=== PATIENT | female | born 1990 | race Caucasian/White ===

== ENCOUNTER 2019-01-06 09:36 | Emergency (ER) | payer OTHER, SELFPAY ==
[2019-01-06 09:38] VITALS: BP 128/75; PULSE 70; RESP 16; TEMP 36.3; O2SAT 100; BMI 20.3
--- NOTE | 2019-01-06 09:51 | US_ITS ---
STUDY: FIRST TRIMESTER OBSTETRICAL ULTRASOUND REASON FOR EXAM: Female, 28 years old vaginal bleeding. LMP: Unknown. TECHNIQUE: Transvaginal TECHNICAL QUALITY: Adequate. PRIOR ULTRASOUND: None. FINDINGS: There is no demonstrated intrauterine gestational sac. The uterus measures 8.1 x 4.7 x 4.4 cm. The endometrium is prominent measuring by 14 mm in thickness and is hyperechoic the. There is no demonstrated uterine fibroid. The cervix is closed. The right ovary measures 2.4 x 1.6 x 5.2 cm. There is no right ovarian cyst. There is no visualized right adnexal mass or complex lesion. The left ovary measures 1.9 x 2.6 x 1.1 cm. There is no left ovarian cyst. There is no visualized left adnexal mass or complex lesion. There is a moderate amount of fluid in the cul de sac. US/Transvaginal w/Preg US IMPRESSION: There is no evidence of intrauterine . Ectopic cannot be excluded. Correlation with beta-hCG levels and if clinically indicated, follow-up examination is recommended. Electronically Signed: Miko Rosenbaum MD at 12:01 EST Tel , Service support ,
--- NOTE | 2019-01-06 09:59 | ED.VISSUMM ---
- ER Visit Summary Date of Service: 01/06/19 Chief Complaint: Vaginal bleeding History of Present Illness: The patient is a 28 F Ab1 at 7 weeks by last menstrual dating. Presents with vaginal spotting, moderate since yesterday. Denies pain, discharge, or any other associated symptoms. Her first miscarried early but may be around 5 or 6 weeks. They never found a heartbeat. She has not required D&C or instrumentation. She does not know her blood type. Physical Examination: Afebrile and vital signs are unremarkable. Abdomen is soft and nontender. CVAs nontender. Pelvic exam pending. Test Results: Labs, quant, ABO Rh, ultrasound pending. Emergency Department Course and Treatment: CBC unremarkable. Blood type a positive. Quant is 1141 8 ultrasound shows no or masses. Patient was discussed with Dr. Cabrera. She will need a follow-up quant in 48 hours. She was given a paper laboratory test requisition form. Dr. Will Steen will call with results. There is concern for miscarriage versus ectopic. Treatment Plan: As above Disposition: Discharge Impression: 1. Vaginal bleeding This note was generated with [employer] dictation software. It may contain incorrect words, spelling, and punctuation that were not noted in review of the chart prior to signing ED Disposition - Plan for ED Patient: Referrals: Care Physician,No Primary [Primary Care Provider] -
[2019-01-06 10:53] LABS: Absolute Lymphocyte Count 1.37 X10^3/uL (0.83-4.51); Absolute Neutrophil Count 4.9 X10^3/uL (2.0-7.7); Basophil# 0.03 X10^3/uL; Basophil% 0.4 % (0-1); Eosinophil# 0.08 X10^3/uL; Eosinophils% 1.1 % (0-5); Hematocrit 41.1 % (37-47); Hemoglobin 13.7 g/dL (12.0-15.0); Lymphocyte # 1.37 X10^3/ul (4.0); Lymphocyte % 19.4 % (19-41); Mean Corp Hgb Conc 33.3 g/dL (32-36); Mean Corpuscular Hgb 29.2 pg (27.0-32.0); Mean Corpuscular Volume 87.6 fL (81-99); Mean Platelet Vol. 11.6 fl (6.2-12.0); Monocyte# 0.64 X10^3/uL; Monocyte% 9.1 % (0-10); NRBC Flagged by Analyzer 0 % (0-5); Neutrophil # 4.93 X10^3/uL (2.7-7.7); Neutrophil % 69.7 % (47-70); Platelet Count 178 K/mm3 (150-450); RBC Distribution Width SD 38.9 fl (35.1-43.9); Red Blood Count 4.69 M/mm3 (4.2-5.4); White Blood Count 7.1 K/mm3 (4.4-11.0)
[2019-01-06 11:14] LABS: Anion Gap 7 (5-15); BUN 11 mg/dL (7-18); BUN/Creat Ratio 17.7 RATIO (10-20); Calcium,Total 8.6 mg/dL (8.5-10.1); Chloride 109 mmol/L (98-107); Creatinine, Serum 0.62 mg/dL (0.55-1.02); EST Glomerular Filtration Rate 121 mL/min (>60); Est Glom Filt Rate - Afr Amer 146 mL/min (>60); Estimated Creatinine Clearance 124.63 ml/min; Glucose 83 mg/dL (74-106); Potassium 3.6 mmol/L (3.5-5.1); Sodium Level 140 mmol/L (136-145)
[2019-01-06 11:41] LABS: hCG Titer Quant., Serum 1141 mIU/mL (1-3)
--- NOTE | 2019-01-06 12:28 | ED.DEP ---
ED Disposition - Plan for ED Patient: Instructions: POSSIBLE MISCARRIAGE (Threatened ) Referrals: Yoon Cabrera MD [STAFF PHYSICIAN] -
[2019-01-06 12:45] VITALS: BP 129/67; PULSE 71; RESP 15; O2SAT 98
== END 2019-01-06 12:46 | disposition home or self-care (01) ==
PROVIDERS: Emergency Provider Emergency Medicine
DX: O20.9 Hemorrhage in early pregnancy, unspecified (principal); Z3A.01 Less than 8 weeks gestation of pregnancy
CPT/HCPCS: 76817; 80048; 84702; 85025; 86900; 86901; 99285; A4216

== ENCOUNTER → 2019-01-08 19:52 | Outpatient (CLI) | payer OTHER, SELFPAY ==
[2019-01-06 09:38] VITALS: BMI 20.3
[2019-01-08 20:55] LABS: hCG Titer Quant., Serum 238 mIU/mL (1-3)
== END ==
PROVIDERS: Referring Provider Emergency Medicine; Visit Provider Emergency Medicine
DX: N93.9 Abnormal uterine and vaginal bleeding, unspecified (principal)
CPT/HCPCS: 36415; 84702

== ENCOUNTER → 2019-02-08 10:41 | Outpatient (CLI) | payer OTHER, SELFPAY ==
[2019-02-08 12:41] LABS: hCG Titer Quant., Serum 79 mIU/mL (1-3)
== END ==
PROVIDERS: Referring Provider Nurse Practitioner Women's Health; Visit Provider Nurse Practitioner Women's Health
DX: O03.9 Complete or unspecified spontaneous abortion without complication (principal)
CPT/HCPCS: 36415; 84702; J7030; A4216

== ENCOUNTER → 2019-02-10 11:17 | Outpatient (CLI) | payer OTHER, SELFPAY ==
[2019-02-08 15:53] VITALS: BMI 21.7
[2019-02-10 12:40] LABS: hCG Titer Quant., Serum 160 mIU/mL (1-3)
[2019-02-12 09:06] LABS: Progesterone Level 16.83 ng/mL (See Comment)
== END ==
PROVIDERS: Referring Provider Obstetrics & Gynecology; Visit Provider Obstetrics & Gynecology
DX: N96 Recurrent pregnancy loss (principal)
CPT/HCPCS: 36415; 84144; 84702

== ENCOUNTER → 2019-02-19 19:18 | Outpatient (CLI) | payer OTHER, SELFPAY ==
[2019-02-08 15:53] VITALS: BMI 21.7
[2019-02-19 20:43] LABS: hCG Titer Quant., Serum 45 mIU/mL (1-3)
== END ==
PROVIDERS: Referring Provider Obstetrics & Gynecology; Visit Provider Obstetrics & Gynecology
DX: N96 Recurrent pregnancy loss (principal)
CPT/HCPCS: 36415; 84702

== ENCOUNTER → 2019-02-21 19:15 | Outpatient (CLI) | payer OTHER, SELFPAY ==
[2019-02-08 15:53] VITALS: BMI 21.7
[2019-02-21 21:03] LABS: hCG Titer Quant., Serum 12 mIU/mL (1-3)
== END ==
PROVIDERS: Referring Provider Obstetrics & Gynecology; Visit Provider Obstetrics & Gynecology
DX: N96 Recurrent pregnancy loss (principal)
CPT/HCPCS: 36415; 84702

== ENCOUNTER → 2019-04-23 14:54 | Outpatient (CLI) | payer OTHER, SELFPAY ==
[2019-04-23 10:15] VITALS: BMI 22.6
[2019-04-23 16:11] LABS: Amphetamine Urine VISTA NEGATIVE (<1000 ng/mL); Barbiturate Urine VISTA NEGATIVE (< 200 ng/mL); Benzodiazepine Urine VISTA NEGATIVE (< 200 ng/mL); Cocaine Urine VISTA NEGATIVE (< 300 ng/mL); Ecstacy Urine VISTA NEGATIVE (< 500 ng/mL); Methadone Urine VISTA NEGATIVE (< 300 ng/mL); PCP Urine VISTA NEGATIVE (< 25 ng/mL); THC Urine VISTA NEGATIVE (< 50 ng/mL); Vista UDS pH Range 6
[2019-04-23 19:40] LABS: Chlamydia Trachomatis by PCR Negative (Negative); Neisserai gonorrhoeae by PCR Negative (Negative); Probe Check PASS; Sample Adequacy Control PASS; Specimen Processing Control PASS
[2019-04-27 11:35] LABS: HPV Reflexed? NOT INDICATED
== END ==
LOC: LABSPEC 14:55
PROVIDERS: Referring Provider Nurse Practitioner Women's Health; Visit Provider Nurse Practitioner Women's Health
DX: O09.90 Supervision of high risk pregnancy, unspecified, unspecified trimester (principal)
CPT/HCPCS: 80307; 87086; 87491; 87591; 88175; G0145

== ENCOUNTER → 2019-05-24 16:20 | Outpatient (CLI) | payer OTHER, SELFPAY ==
[2019-05-24 15:52] VITALS: BMI 22.6
[2019-05-24 17:28] LABS: Absolute Lymphocyte Count 2.32 X10^3/uL (0.83-4.51); Absolute Neutrophil Count 7.9 X10^3/uL (2.0-7.7); Basophil# 0.04 X10^3/uL; Basophil% 0.3 % (0-1); Eosinophil# 0.14 X10^3/uL; Eosinophils% 1.2 % (0-5); Hematocrit 39.8 % (37-47); Hemoglobin 13.1 g/dL (12.0-15.0); Lymphocyte # 2.32 X10^3/ul (4.0); Lymphocyte % 20.2 % (19-41); Mean Corp Hgb Conc 32.9 g/dL (32-36); Mean Corpuscular Hgb 28.4 pg (27.0-32.0); Mean Corpuscular Volume 86.3 fL (81-99); Monocyte# 1.03 X10^3/uL; NRBC Flagged by Analyzer 0 % (0-5); Neutrophil # 7.91 X10^3/uL (2.7-7.7); Neutrophil % 68.9 % (47-70); Platelet Count 217 K/mm3 (150-450); RBC Distribution Width CV 12.5 % (11.6-14.6); RBC Distribution Width SD 39.2 fl (35.1-43.9); Red Blood Count 4.61 M/mm3 (4.2-5.4); White Blood Count 11.5 K/mm3 (4.4-11.0)
[2019-05-25 09:06] LABS: HIV - WCH Non-Reactive (Nonreactive); Hepatitis B Surface Antigen Non-Reactive (Nonreactive); Hepatitis C Antibody Non-Reactive (Nonreactive); Rubella IgG 184.9 IU/mL
[2019-05-31 00:52] LABS: Rapid Plasmin Reagin (RPR) NONREACTIVE (NONREACTIVE)
== END ==
PROVIDERS: Referring Provider Nurse Practitioner Women's Health; Visit Provider Nurse Practitioner Women's Health
DX: O09.90 Supervision of high risk pregnancy, unspecified, unspecified trimester (principal); Z3A.00 Weeks of gestation of pregnancy not specified
CPT/HCPCS: 36415; 85025; 86592; 86703; 86762; 86803; 86850; 86900; 86901; 87340

== ENCOUNTER → 2019-08-30 13:58 | Outpatient (CLI) | payer OTHER, SELFPAY ==
[2019-08-16 16:24] VITALS: BMI 26.7
[2019-08-30 15:25] LABS: Absolute Lymphocyte Count 2.42 X10^3/uL (0.83-4.51); Absolute Neutrophil Count 12.7 X10^3/uL (2.0-7.7); Basophil# 0.06 X10^3/uL; Basophil% 0.4 % (0-1); Eosinophil# 0.11 X10^3/uL; Eosinophils% 0.6 % (0-5); Hematocrit 35.1 % (37-47); Hemoglobin 11.6 g/dL (12.0-15.0); Lymphocyte # 2.42 X10^3/ul (4.0); Lymphocyte % 14.1 % (19-41); Mean Corpuscular Hgb 29.1 pg (27.0-32.0); Mean Platelet Vol. 11.4 fl (6.2-12.0); Monocyte# 1.46 X10^3/uL; Monocyte% 8.5 % (0-10); NRBC Flagged by Analyzer 0 % (0-5); Neutrophil # 12.71 X10^3/uL (2.7-7.7); Neutrophil % 74.4 % (47-70); Platelet Count 233 K/mm3 (150-450); RBC Distribution Width CV 13.2 % (11.6-14.6); RBC Distribution Width SD 41.6 fl (35.1-43.9); Red Blood Count 3.99 M/mm3 (4.2-5.4); White Blood Count 17.1 K/mm3 (4.4-11.0)
[2019-08-30 15:42] LABS: Glucose Challenge Gest 1H 50g 132 mg/dL (70-140)
== END ==
PROVIDERS: Referring Provider Obstetrics & Gynecology; Visit Provider Obstetrics & Gynecology
DX: O09.90 Supervision of high risk pregnancy, unspecified, unspecified trimester (principal); Z3A.00 Weeks of gestation of pregnancy not specified
CPT/HCPCS: 36415; 82950; 85025

== ENCOUNTER → 2019-11-01 | Outpatient (CLI) | payer OTHER, SELFPAY ==
[2019-11-01 14:13] VITALS: BMI 26.7
== END | disposition home or self-care (01) ==
LOC: LABSPEC 16:44
PROVIDERS: Referring Provider Obstetrics & Gynecology; Visit Provider Obstetrics & Gynecology
DX: Z34.90 Encounter for supervision of normal pregnancy, unspecified, unspecified trimester (principal)
CPT/HCPCS: 87081

== ENCOUNTER → 2019-11-20 | Outpatient (CLI) | payer OTHER, SELFPAY ==
[2019-11-09 14:41] VITALS: BMI 29.7
[2019-11-16 14:45] VITALS: BMI 29.7
== END | disposition home or self-care (01) ==
LOC: LABSPEC 18:01
PROVIDERS: Referring Provider Obstetrics & Gynecology; Visit Provider Obstetrics & Gynecology
DX: Z11.59 Encounter for screening for other viral diseases (principal)
CPT/HCPCS: 87635; C9803; U0003

== ENCOUNTER 2019-11-23 13:20 | Inpatient (IN) | payer OTHER, MEDICAID, SELFPAY ==
[2019-11-23] VITALS (35 sets, daily range): BP systolic 110–148; BP diastolic 57–86; PULSE 72–106; TEMP 36.4–37.1; O2SAT 90–100; BMI 29.7; BMI 30.7
[2019-11-23 13:20] LABS: ROM Internal Control Test YES-OK TO RESULT pt. (Internal QC)
[2019-11-23 13:21] LABS: ROM Patient Test POSITIVE (Negative)
[2019-11-23] MEDS: Lactated Ringers 1,000 ML 50 ML IV (13:45)
[2019-11-23 14:03] LABS: Absolute Lymphocyte Count 2.27 X10^3/uL (0.83-4.51); Absolute Neutrophil Count 11.6 X10^3/uL (2.0-7.7); Basophil# 0.06 X10^3/uL; Basophil% 0.4 % (0-1); Eosinophil# 0.11 X10^3/uL; Eosinophils% 0.7 % (0-5); Hematocrit 38.9 % (37-47); Hemoglobin 12.7 g/dL (12.0-15.0); Lymphocyte # 2.27 X10^3/ul (4.0); Lymphocyte % 14.1 % (19-41); Mean Corp Hgb Conc 32.6 g/dL (32-36); Mean Corpuscular Hgb 27.5 pg (27.0-32.0); Mean Corpuscular Volume 84.2 fL (81-99); Mean Platelet Vol. 11.9 fl (6.2-12.0); Monocyte% 9.9 % (0-10); NRBC Flagged by Analyzer 0 % (0-5); Neutrophil # 11.64 X10^3/uL (2.7-7.7); Neutrophil % 72.1 % (47-70); POSITIVE DIFFERENTIAL YES; Platelet Count 243 K/mm3 (150-450); RBC Distribution Width CV 13.7 % (11.6-14.6); RBC Distribution Width SD 41.8 fl (35.1-43.9); Red Blood Count 4.62 M/mm3 (4.2-5.4); White Blood Count 16.1 K/mm3 (4.4-11.0)
[2019-11-23 14:11] LABS: Differential Indicated SCAN CRITERIA MET
[2019-11-23 14:15] LABS: AST(SGOT) 21 U/L (15-37); Alanine Aminotransfer ALT/SGPT 44 U/L (13-56); Creatinine, Serum 0.59 mg/dL (0.55-1.02); EST Glomerular Filtration Rate 128 mL/min (>60); Est Glom Filt Rate - Afr Amer 154 mL/min (>60); Estimated Creatinine Clearance 131.71 ml/min; Uric Acid 3.6 mg/dL (2.6-6.0)
[2019-11-23 15:43] LABS: Protein, Urine (Random) 24.1 mg/dL (<11.9); Protein:Creat Ratio 444 mg/g CRE (0-200)
[2019-11-23] MEDS: Oxytocin 30 units/NS 500 ml 30 UNITS/500 ML IV.SOLN IV (16:01)
--- NOTE | 2019-11-23 20:19 | SUR.OPER ---
At 1915 this RN noted pitocin to be at 8mu/hr - see Connect for titration rate changes.
[2019-11-23] MEDS: Lactated Ringers 500 ML 999 ML IV (20:26)
[2019-11-23] MEDS: Lactated Ringers 1,000 ML 200 ML IV (21:03)
[2019-11-23] MEDS: fentaNYL-bupivacaine (epidural) 100 ML BAG EPIDURAL (21:20)
[2019-11-24] VITALS (23 sets, daily range): BP systolic 96–126; BP diastolic 53–68; PULSE 79–118; RESP 14–18; TEMP 36.4–38; O2SAT 98–99
[2019-11-24] MEDS: Ondansetron 4 MG/2 ML Vial IV (00:33)
[2019-11-24] MEDS: fentaNYL-bupivacaine (epidural) 100 ML BAG EPIDURAL (01:30)
--- NOTE | 2019-11-24 01:56 | HP.PCM_ITS ---
- Problem List (1) 38 weeks gestation of Status: Acute Comment: COVID TESTING ORDERED 11/14/2019sc (2) Status: Acute Qualifiers: Comment: declined ntd, carrier and NIPT screening. anatomy us reviewed. (3) SROM (spontaneous rupture of membranes) Status: Acute (4) Supervision of normal in third trimester Status: Acute Comment: PRR ELAINE 11/24/19 girl Spouse Aime History and Physical Date of Admission: 11/23/19 Intake Vital Signs 11/23/19 BMI 29.7 11/23/19 Height 5 ft 6.5 in 11/23/19 Weight: 191 lb 11/23/19 BMI 30.3 11/23/19 BP 140/80 H Intake Visit Reasons: 40 WK OB Is patient in pain?: No Allergies metronidazole [From Flagyl] Allergy (Verified 11/23/19 12:40) Swelling pecans Allergy (Mild, Uncoded 11/16/19 14:44) unknown walnuts Allergy (Mild, Uncoded 11/16/19 14:44) unknown Medications prenat.vits,carolina,[id number] 1 tab PO DAILY 04/23/19 [History Confirmed 11/23/19] Last Menstral Period: 02/17/19 Zika: Zika virus screening: Negative : No PFSH PFSH Family History Grandfather Diabetes Heart disease Mother Rheumatoid arthritis Social History (Updated 11/23/19 @ 13:[address] Yoon Cabrera MD) Smoking Status: Never smoker alcohol intake: never substance use type: does not use caffeine: Yes what type of physical activity do you participate in: none seatbelt use: sometimes do you feel safe at home: Yes additional social history: Boyfriend-Aime Patient works at [employer] Pregancy History 4 Elective abortions Hx Para Spontaneous abortions 3 Hx # Term Pregnancies Ectopic pregnancies Hx # Pregnancies Multiple births # of living children HPI 40 WK OB: Details: KAMARI ANTHONY is a 28 year old @ 39w6d presents with PROM pos itive rom plus. she hasn't had any contraction and denies any vb, has good fm. OB Visit ELAINE Calculator Estimated Delivery Date Method Current WG Current Estimate 11/24/19 LMP (Uncertain) 39w 6d Other Estimates 11/25/19 Ultrasound #1 39w 5d Expected Delivery Route/Plan Labor support person Aime Pain management preference option epidural cut cord/dad catch yes yes PP control plan OCPs discuss possible routes of delivery and associated risks: discussed possible delivery modalities and possible indications for each including R/B/A of , VAVD, and CS. questions answered. special requests [] Specific Issue/Plans flu vaccine declines tdap vaccine: given rhogam na LARC form signed yes movement and labor precautions reviewed. Problem list reviewed and updated with the most current details and appropriate orders placed. Continue routine care and follow up unless otherwise noted in visit notes/problem list details. Initial Weight: 140 lb Date EGA Weight BP Urine Prot Glucose FHR FuHt Pres Dilation Effaced St Visit Note 04/23/19 9w 2d 142 lb 4 oz (+2 lb 4 oz) 185 05/24/19 13w 5d 149 lb (+9 lb) 118/68 155 SM- no vb cramping doing welo 07/20/19 21w 6d 159 lb 2 oz (+19 lb 2 oz) 120/68 Negative Negative 153 MH-No VB, LOF. Good FM. Previa noted and rpt US scheduled. 08/16/19 25w 5d 168 lb 2 oz (+28 lb 2 oz) 128/68 Negative Negative 150 26 SM- -no vb lof good fm no regular ctx 08/30/19 27w 5d 171 lb 2 oz (+31 lb 2 oz) 126/70 Negative Negative 161 28 MH-Good FM. No VB, LOF. MFM US today and previa resolved. 28 wk labs and tdap 09/14/19 29w 6d 176 lb 4 oz (+36 lb 4 oz) 106/60 Negative Negative 150 30 SM- no vb lof good fm no regular ctx 09/28/19 31w 6d 181 lb (+41 lb) 126/72 Negative Negative 150 31 GP - no ctx/LOF/VB/DFM. Doing well. 10/12/19 33w 6d 183 lb (+43 lb) 120/70 Negative Negative 150 33 GP - no lof, vb, dfm, ctx. Doing well. 10/26/19 35w 6d 186 lb (+46 lb) 118/70 140 36 SM- no vb lof good fm no regular ctx 11/01/19 36w 5d 187 lb (+47 lb) 122/80 140 37 Cephalic 1 -1 SM- no vb lof good fm no regular ctx 11/09/19 37w 6d 187 lb 6 oz (+47 lb 6 oz) 120/84 Negative Negative 145 37 Cephalic GP - no LOF, VB, DFM, ctx. Declines exam. Discussed routes of delivery. 11/16/19 38w 6d 192 lb (+52 lb) 124/82 Negative Negative 140 39 Cephalic SM- no vb lof good fm no regular ctx 11/23/19 39w 6d 191 lb (+51 lb) 140/80 Negative Negative 140 40 Cephalic 1 -1 SM- questionable LOF, no vb good fm n o regular ctx. ROM plus positive recommend admit on l and d ACOG First Trimester First Trimester: Discussed Diagnostics Diagnostics Diagnostics Glucose 1 Hr 50 gm 132 mg/dL (70-140) 08/30/19 Hgb 11.6 g/dL (12.0-15.0) L 08/30/19 Hct 35.1 % (37-47) L 08/30/19 Details: HIV: Urine Culture: Sequential Screen: NIPT Screen: ROS Const Reports system reviewed and no additional complaints, except as docu Card Reports system reviewed and no additional complaints, except as docu Resp Reports system reviewed and no additional complaints, except as docu GI Reports system reviewed and no additional complaints, except as docu, Reports nausea Reports system reviewed and no additional complaints, except as docu Musc Reports system reviewed and no additional complaints, except as docu Exam Const General: cooperative, healthy appearing, comfortable, anxious [facility] Head: normal to inspection Nose: external nose normal Face and sinus: normal facial exam Neck Neck: normal visual inspection, full ROM, no lymphadenopathy Thyroid: thyroid normal Chest Chest palpation & inspection: normal inspection of the chest Resp Effort & Inspection: normal respiratory effort GI Inspection: normal to inspection Palpation: soft, other (gravid uterus) Other: infant vertex and appropriate size for gestational age Other: Cervical Exam: Extrem General: pedal edema Results POC Urinalysis 2 Dip (Clinic) Office Urine Glucose Negative Last Edit by Rajni Prieto on 11/23/19 12:44 Office Urine Protein Negative Last Edit by Rajni Prieto on 11/23/19 12:44 Assessment & Plan Problems 1. SROM (spontaneous rupture of membranes) 2. Supervision of normal in third trimester Z34.93 PRR ELAINE 11/24/19 girl Spouse Aime 3. Z34.90 declined ntd, carrier and NIPT screening. anatomy us reviewed. 4. 38 weeks gestation of Z3A.38 COVID TESTING ORDERED 11/14/2019sc Plan Patient presents IAL, plan expectant management for , pitocin PRN if needed. Pain management: plans epidural. GBS neg. Management of any complications: inital elevated bp check labs I have reviewed the [facility] and made any clinically relevant updates. Orders Orders: POC Urinalysis 2 Dip (Clinic) Today (ROM) Rupture Of Membranes Today Z34.93 Coding Level of Care Code OB Routine Diagnoses SROM (spontaneous rupture of membranes) Supervision of normal in third trimester Z34.93 Z34.90 38 weeks gestation of Z3A.38
[2019-11-24] MEDS: proCHLORPERazine 10 MG/2 ML Vial IV (01:57)
--- NOTE | 2019-11-24 01:57 | PCM.OPRPT ---
Problem List (1) 38 weeks gestation of Status: Acute Comment: COVID TESTING ORDERED 11/14/2019sc (2) Status: Acute Qualifiers: Comment: declined ntd, carrier and NIPT screening. anatomy us reviewed. (3) SROM (spontaneous rupture of membranes) Status: Acute (4) Supervision of normal in third trimester Status: Acute Comment: PRR ELAINE 11/24/19 girl Spouse Aime Vaginal Delivery Maternal Presentation: Spontaneous Rupture of Membranes 28 yo @ 40 weeks presents SROM Medical Reason for Induction: Premature Rupture of Membranes Amniotic Membrane Rupture Type: Spontaneous at home Amniotic Fluid Description: Clear Final ELAINE: 11/24/19 Gestational age: 40 Weeks and 0 Days Date of Procedure: 11/24/19 Pre-Operative Diagnosis: PROM Post-Operative Diagnosis: same Surgery/ Procedure Performed: Spontaneous Vaginal Delivery Type of Anesthesia: Epidural Description of Procedure: Patient began pushing and delivered the head in the [YESSICA] presentation. The head was delivered atraumatically [and a loose nuchal cord ?1 was identified and easily reduced over the infant's head]. The anterior and posterior shoulders delivered without complication followed by the rest of the and the infant was placed on the maternal abdomen. Delayed cord clamping was employed for approximately 60 seconds. Cord was clamped and cut and gentle traction was applied to the cord and the placenta delivered spontaneously immediately following it was noted to be intact with three-vessel cord. The perineum and vagina were inspected and [noted to have no laceration]. EBL was [100 cc]. Patient and infant tolerated delivery well. Placental Delivery Description: Spontaneous Placenta Disposition: [facility] Cord Vessel Description: 3 Vessels A gender: Female Medications given after delivery: IV Pitocin Complications: None Multi Select Codes - Urinary/Genital Urinary/Genital CPT Codes: 51131 Vaginal Delivery [facility]
[2019-11-24] MEDS: Lactated Ringers 1,000 ML 200 ML IV (02:07)
[2019-11-24] MEDS: Oxytocin 30 units/NS 500 ml 30 UNITS/500 ML IV.SOLN 334 UNITS IV (02:41)
[2019-11-24] MEDS: 0.9% Saline Lock 10 ML Syringe IV (05:03)
[2019-11-24 06:55] LABS: Bedside Glucose 123 mg/dL (70-110)
[2019-11-24 07:08] LABS: Hemoglobin 10.3 g/dL (12.0-15.0)
--- NOTE | 2019-11-24 07:12 | NURSING ---
At 0650 patient encouraged to get up to restroom to try to void and change michelle pad. Pt did well sitting on side of bed and walking into restroom. once in restroom, pt noted that she felt funny. This RN encouraged patient to take deep breaths and used ammonia salt to try to stimulate patient. Pt stated she felt better and stood, walked out of bathroom and began to feel unsteady. Patient's significant other in front of patient and assisted her with lowering to floor. Staff assist button activated and extra staff to room to help patient. Blood glucose done and was 123mg/dl. Patient laid on floor and was given apple juice, then assisted to wheelchair. Once in wheelchair patient stated she felt better and had some more apple juice. Patient then assisted into bed from wheelchair.
[2019-11-24] MEDS: Naproxen 250 MG Tablet 500 MG PO ×2 (09:59→18:07)
[2019-11-24] MEDS: Acetaminophen 500 MG Tablet 1000 MG PO (13:54)
[2019-11-24] MEDS: Senna/Docusate Sodium 1 Tablet PO (18:07)
[2019-11-24] MEDS: Dibucaine 30 GM Tube 1 APPLIC TOPICAL (19:57)
[2019-11-25] MEDS: Naproxen 250 MG Tablet 500 MG PO (04:10)
[2019-11-25 04:15] VITALS: BP 112/61; PULSE 85; RESP 18; TEMP 36.6
[2019-11-25 07:39] VITALS: BP 133/70; PULSE 90
[2019-11-25 07:42] VITALS: BP 130/80; PULSE 90; RESP 14; TEMP 36.4
--- NOTE | 2019-11-25 07:51 | PCM.PN.OB ---
Patient Problems: Active and Suspected Problems (Last Reviewed 11/23/19 @ 12:40 by Rajni Prieto) Shoulder dystocia, delivered (Acute) Mild lasting 60 seconds resolved with [place] and suprapubic. Discussed with patient and spouse recommend induction of labor at 39 weeks with lower EFW with next . Immediate for future pregnancies not necessarily warranted. Subjective: Patient doing well without complaints. Tolerating PO. Ambulating and voiding without difficulty. breast feeding well. Denies chest pain, shortness of breath, calf pain/swelling, fevers, chills, lightheadedness. - Physical Exam Vitals/I&O's: Vital Signs Temp Pulse Resp BP Pulse Ox 97.5 F L 90 14 130/80 H 98 11/25/19 07:42 11/25/19 07:42 11/25/19 07:42 11/25/19 07:42 11/24/19 01:30 Oxygen Delivery Method Room Air Weight: 190 lb 11.198 oz Body Mass Index (BMI) 30.7 Intake and Output for Last 24 Hours 11/23/19 11/24/19 11/25/19 23:59 23:59 23:59 Intake Total 1638.14 / 1638.14 1651.53 / 1651.53 Output Total 1700 / 1700 Balance 1638.14 / 1638.14 -48.47 / -48.47 General: Alert, Oriented x3 Laboratory Results 11/24/19 07:30: Hgb 10.3 L Current Medications Acetaminophen (Tylenol) 1,000 mg PO Q8H PRN PRN PRN Reason: Pain Score 1-3 Last Admin: 11/24/19 13:54 Dose: 1,000 mg Documented by: Bisacodyl (Dulcolax) 10 mg RECTAL UD PRN PRN Reason: If no BM Dibucaine (Dibucaine) 1 applic TOPICAL TID PRN PRN; Protocol PRN Reason: Discomfort Last Admin: 11/24/19 19:57 Dose: 1 applicatio Documented by: Hydrocortisone (Hytone) 1 applic TOPICAL TID PRN PRN; Protocol PRN Reason: Discomfort Methylergonovine Maleate (Methergine) 0.2 mg IM X1 PRN PRN Reason: Excess bleeding/uterine atony Naproxen (Naprosyn) 500 mg PO Q8H PRN PRN PRN Reason: Pain Score 1-3 Last Admin: 11/25/19 04:10 Dose: 500 mg Documented by: Ondansetron HCl (Zofran) 4 mg IV Q4H PRN PRN PRN Reason: Nausea Oxycodone HCl (Oxyir) 5 - 10 mg PO Q4H PRN PRN PRN Reason: Pain Score 4-10 Senna/Docusate Sodium (Senokot-S, Ronit-Colace) 1 - 2 tablet PO DAILY PRN PRN PRN Reason: Constipation Last Admin: 11/24/19 18:07 Dose: 1 tablet Documented by: Simethicone (Mylicon) 80 mg PO PCHS PRN PRN Reason: Indigestion/Stomach pain Sodium Chloride () 5 - 15 ml IV UD PRN PRN Reason: SALINE FLUSH Last Admin: 11/24/19 05:03 Dose: 10 ml Documented by: Medical Necessity - Tobacco Use Smoking Status: Never smoker Assessment/Plan All Active Problems (Last Reviewed 11/23/19 @ 12:40 by Rajni Prieto) Shoulder dystocia, delivered (Acute) SROM (spontaneous rupture of membranes) (Acute) 38 weeks gestation of (Acute) Supervision of normal in third trimester (Acute) (Acute) Complete placenta previa nos or without hemorrhage, second trimester (Resolved) Recurrent loss (Resolved) s/p PPD # 1 1. routine post delivery care 2. breast feeding- support given 3. rh positive 4. rubella immune
--- NOTE | 2019-11-25 09:19 | NURSING ---
Some teaching on care deferred. Mom visibly upset over transfer. [place] care will be reviewed at [facility].
[2019-11-25] MEDS: Acetaminophen 500 MG Tablet 1000 MG PO (09:30)
[2019-11-26 11:57] LABS: Pathologist Review Reviewed
== END 2019-11-25 09:30 | disposition home or self-care (01) | DRG 807 ==
LOC: WPOUT 13:23 → WP 13:23
PROVIDERS: Admitting Provider Obstetrics & Gynecology; Referring Provider Obstetrics & Gynecology; Visit Provider Obstetrics & Gynecology
DX: O42.92 Full-term premature rupture of membranes, unspecified as to length of time between rupture and onset of labor (principal); O69.81X0 Labor and delivery complicated by cord around neck, without compression, not applicable or unspecified; O66.0 Obstructed labor due to shoulder dystocia; O70.1 Second degree perineal laceration during delivery; Z3A.40 40 weeks gestation of pregnancy; Z37.0 Single live birth
CPT/HCPCS: 59025; 59050; 82565; 82570; 82962; 84112; 84156; 84450; 84460; 84550; 85018; 85025; 86850; 86900; 86901; 99218; J7120; A4216; G0378; J2405

== ENCOUNTER → 2020-04-16 17:41 | Outpatient (CLI) | payer OTHER, MEDICAID, SELFPAY ==
[2019-11-23 13:28] VITALS: BMI 30.7
--- NOTE | 2020-04-16 17:46 | MRI_ITS ---
STUDY: MRI BRAIN WITH AND WITHOUT CONTRAST (ATTENTION INTERNAL AUDITORY CANALS - I.A.C.''s) REASON FOR EXAM: Female, 29 years old. RT HEARING LOSS TECHNIQUE: Standardized multiplanar fat and water weighted pulse sequences were obtained. IV 13ml Dotarem was administered for the contrast portion of the examination. COMPARISON: None FINDINGS: Normal bilateral temporal bones. Normal bilateral internal auditory canals. There is no demonstrated intracanalicular or cisternal vestibular schwannoma (acoustic neuroma). There is no enhancement of the bilateral VIIth or VIIIth cranial nerves. Normal bilateral cochlea, vestibules and semicircular canals. Normal size of the ventricles and extra-axial spaces for the patient''s age. Normal white matter tracts of the supratentorial brain. Normal bilateral basal ganglia. Normal thalami. Normal flow voids within the major intracranial circulation suggesting patency by spin echo criteria. Normal venous enhancement. There is no enhancing intra-axial or extra-axial abnormality. There is no extra-axial fluid accumulation. Normal sella turcica, pituitary gland, infundibular stalk, optic chiasm and hypothalamus. Normal tectal plate and pineal gland. Normal midbrain, carlos and medulla. Normal cerebellum. Normal basal cisterns. No demonstrated orbital abnormality, within the constraints of a routine brain study. Normal visualized paranasal sinuses. Normal calvarium and skull base. Normal visualized soft tissue structures. Normal visualized upper cervical spine. MRI/Brain W/WO Contrast IMPRESSION: Normal unenhanced and enhanced MRI of the bilateral internal auditory canals (I.A.C''s). Specifically, no evidence for acoustic or vestibular schwannoma Electronically Signed: Addi Hooper MD at 22:27 EST , Service support ,
== END ==
PROVIDERS: Referring Provider Otolaryngology Otolaryngology/Facial Plastic Surgery; Visit Provider Otolaryngology Otolaryngology/Facial Plastic Surgery
DX: H90.41 Sensorineural hearing loss, unilateral, right ear, with unrestricted hearing on the contralateral side (principal)
CPT/HCPCS: 70553; A9575

== ENCOUNTER → 2023-08-22 | Outpatient (CLI) | payer OTHER, SELFPAY ==
[2023-08-25 08:13] LABS: Chlamydia By Nucleic Acid AMP Negative (Negative); Gonococcus By Nucleic Acid AMP Negative (Negative)
[2023-08-25 09:09] LABS: HPV APTIMA, High Risk Negative (Negative)
== END | disposition home or self-care (01) ==
PROVIDERS: Visit Provider Obstetrics & Gynecology
DX: Z20.2 Contact with and (suspected) exposure to infections with a predominantly sexual mode of transmission (principal)
CPT/HCPCS: 87491; 87591; 87624; 88175; G0145

== ENCOUNTER 2024-09-10 11:52 | Emergency (ER) | payer BC, SELFPAY ==
[2024-09-10 11:53] VITALS: BP 133/113; PULSE 88; RESP 18; TEMP 37.2; O2SAT 100; BMI 21.7
--- NOTE | 2024-09-10 12:51 | CT_ITS ---
PROCEDURE: ABDOMEN/PELVIS W IV CONT ONLY 09/10/2024 REASON FOR EXAM: 3 day history of abdominal pain. TECHNIQUE: ABDOMEN/PELVIS W IV CONT ONLY Coronal and Sagittal reconstruction series were provided. CONTRAST: Isovue-300 VOLUME: 100 mL One or more dose reduction techniques were used (e.g., Automated exposure control, adjustment of the mA and/or kV according to patient size, use of iterative reconstruction technique. RADIATION DOSE SUMMARY: CTDlvol: 9 mGy DLP: 283.42 mGycm COMPARISON: None FINDINGS: Lung bases: Unremarkable Liver: Normal size. No mass. Gallbladder: Unremarkable Spleen: Normal size. Pancreas: Normal size without evidence of mass surrounding inflammation or ductal dilation. Adrenals: Unremarkable Kidneys: Normal renal sizes. No hydronephrosis. Bladder: Unremarkable Reproductive Organs: A pessary device is seen in the region of the cervix. Minimal amount of free fluid is seen in the cul-de-sac. Bowel: Unremarkable Appendix: Unremarkable Lymph nodes: Unremarkable. Vasculature: The abdominal aorta and IVC are normal. Peritoneum / Retroperitoneum: Unremarkable Bones: Unremarkable CT/Abdomen/Pelvis W IV Cont ONLY IMPRESSION: Small amount of free fluid is seen in the cul-de-sac. This may be related to t he patient's menstrual cycle. Pessary device is seen in the region of the uterine cervix. Reading Location: [id number]
--- NOTE | 2024-09-10 12:52 | ED.VIS.GI ---
HPI HPI - GI History of Present Illness Chief Complaint: Abd Pain Informant: patient Abdominal Pain/Flank Pain Onset: Days (3) Context: Gradual Onset Timing: Continuous Quality: Sharp Location: Epigastric and RLQ Worsened by: - (Walking) Relieved by: - (Shower) Nausea/Vomiting/Emesis GI Symptom: Negative for Nausea or Vomiting Diarrhea/Melena/Hematochezia GI Symptom: Negative for Diarrhea, Melena or Hematochezia Associated Symptoms Associated Symptoms: Negative for Dysuria, Frequency or Hematuria LMP: Patient has a contraceptive ring and states she does not have regular perio Narrative Narrative: Patient presents with abdominal pain that has been getting worse over the past 3 days. Patient states her pain started over the epigastric area but is now mainly over the right lower abdomen and suprapubic area. Patient describes her pain as sharp. Patient states it is worse with walking. Patient states that did get better while she took a shower. Patient admits to decreased appetite but denies any nausea or vomiting. Patient denies any diarrhea, melena, or hematochezia. Patient states she last ate at approximately 6 PM last night. Patient states she had some cereal at that time. Patient states she had a couple sips of water today. Patient denies any fevers or chills. Patient states she did wake up with a sweat this morning. Patient states that yesterday she also developed a migraine headache over the left side of her head. Patient states it goes from her left orbital area to the left occipital area. Patient states nothing makes it better nothing makes it worse. PFSH PFSH Home Medications ?Medication ?Instructions ?Recorded ?Last Taken ?Type acyclovir 200 mg capsule 200 mg PO TID PRN 08/22/23 Unknown History segesterone acet 0.15 mg-ethinyl 1 vag ring vaginal Q4W #1 ea 04/05/24 Unknown Rx estradiol 0.013 mg/24 hr vaginal ring ([place]) ondansetron 4 mg disintegrating 4 mg PO Q8H PRN PRN Nausea #10 tabs 09/10/24 Unknown Rx tablet Allergy/AdvReac Type Severity Reaction Status Date / Time pecan nut Allergy Mild NEEDS Verified 09/10/24 11:55 FOLLOW-UP walnut Allergy Mild NEEDS Verified 09/10/24 11:55 FOLLOW-UP hazelnut Allergy Anaphylaxis Verified 09/10/24 11:55 metronidazole (From Flagyl) Allergy Swelling Verified 09/10/24 11:55 Family History Grandfather Diabetes Heart disease Mother Rheumatoid arthritis Social History number of children: 1 current occupational status: employed current occupation: [employer] 1 Smoking Status: Never smoker alcohol intake: never substance use type: does not use caffeine: Yes what type of physical activity do you participate in: none seatbelt use: sometimes do you feel safe at home: Yes ROS ROS ED Constitutional Constitutional ED: Reports sweats; Denies chills or fever(s) Eyes Eyes: Denies blurry vision or change in vision ENT ENT ED: Denies rhinorrhea or sore throat Cardiovascular Cardiovascular: Denies chest pain or palpitations Respiratory/Chest Respiratory/Chest: Denies cough or dyspnea Gastrointestinal Gastrointestinal: Reports abdominal pain; Denies constipation, diarrhea, melena, nausea or vomiting Genitourinary Genitourinary ED: Denies dysuria or hematuria Musculoskeletal Musculoskeletal: Reports back pain; Denies neck pain Integumentary Denies abscess or rash Neurologic Neurologic: Reports headache(s); Denies weakness Allergic/Immunologic Allergic/Immunologic ED: Denies mouth swelling or urticaria EXAM Physical Exam Const Vital Signs: 09/10/24 11:53 09/10/24 13:52 09/10/24 15:00 Temperature 98.9 F Temperature Source Oral Pulse Rate 88 70 81 Respiratory Rate 18 16 16 Blood Pressure 133/113 H 103/66 99/76 Blood Pressure Mean 119 78 83 Pulse Ox 100 100 100 Oxygen Delivery Method Room Air Room Air Room Air 09/10/24 15:22 Temperature 98.6 F Temperature Source Pulse Rate 81 Respiratory Rate 16 Blood Pressure 99/76 Blood Pressure Mean 83 Pulse Ox 100 Oxygen Delivery Method Positive well nourished and well developed General Appearance ED: well developed and NAD HEENT Reports moist mucous membranes normocephalic and atraumatic Neck supple and no JVD Resp normal respiratory effort and clear to auscultation bilaterally Cardio regular rate and regular rhythm GI non-distended Palpation: soft and tender RLQ and suprapubic; Negative for rebound tenderness present Neuro CN's II-XII intact bilaterally, moves all extremities and no sensory deficits noted Sensorium / Orientation: alert Motor Exam: strength 5/5 throughout Psych mental status grossly normal MDM MDM MDM Narrative Medical decision making narrative: Differential diagnosis includes appendicitis, ectopic , ovarian cyst, urinary tract infection, diverticulitis, pancreatitis, and electrolyte abnormality. CBC will be obtained to assess for leukocytosis and anemia. Comprehensive metabolic profile will be obtained to assess for hepatic function, renal function, and electrolyte abnormality. Lipase will be obtained to assess for pancreatitis. Serum hCG will be obtained to assess for . Urinalysis will be obtained to assess for urinary tract infection and hematuria. CT scan of the abdomen and pelvis will be obtained to assess for appendicitis, ectopic , diverticulitis, and pancreatitis. History & Record Review Additional record(s) reviewed:: Prior outpatient record, Prior ED visit and Prior labs Lab Data Attestation: I reviewed the patient's lab results. Lab results narrative: CBC was reviewed and was within normal limits. Comprehensive metabolic profile was reviewed and was essentially within normal limits. Lipase was reviewed and was normal at 13. Serum hCG was reviewed and was negative. Urinalysis was reviewed. There is no evidence of urinary tract infection or hematuria. Labs: Laboratory Results - last 24 hr 09/10/24 09/10/24 12:04 13:20 WBC 4.5 RBC 4.96 Hgb 14.1 Hct 41.8 MCV 84.3 MCH 28.4 MCHC 33.7 RDW Std Deviation 36.2 RDW Coeff of Stormy 12.0 Plt Count 203 MPV 11.7 Immature Gran % (Auto) 0.400 Neut % (Auto) 57.7 Lymph % (Auto) 26.9 [place] % (Auto) 12.2 H Eos % (Auto) 2.4 Baso % (Auto) 0.4 Absolute Neuts (auto) 2.6 Absolute Lymphs (auto) 1.21 Nucleated RBC % 0 Sodium 139 Potassium 4.0 Chloride 105 Carbon Dioxide 24.5 Anion Gap 10 BUN 10 Creatinine 0.87 Estim Creat Clear Calc 85.30 Est GFR (MDRD) Non-Af 90 BUN/Creatinine Ratio 11.1 Glucose 83 Calcium 8.9 Total Bilirubin 0.33 AST 20 ALT 11 Alkaline Phosphatase 63 Total Protein 7.0 Albumin 4.0 Globulin 3.0 Albumin/Globulin Ratio 1.3 Lipase 13 Serum , Qual NEGATIVE Urine Color Yellow Urine Clarity Clear Urine pH 6.0 Ur Specific [place] 1.025 Urine Protein 30 H Urine Glucose (UA) Normal Urine Ketones 5 H Urine Occult Blood Negative Urine Nitrite Negative Urine Bilirubin 1 H Urine Urobilinogen 1 H Ur Leukocyte Esterase 100 H Urine RBC 0 SEEN Urine WBC 0 SEEN Ur Squamous Epith Cells 5-10 SEEN Urine Bacteria 0 SEEN Urine Mucus 1+ Radiography Diagnostic Testing: Clinical Impression(s) from Imaging Studies Abdomen/Pelvis CT 09/10/24 12:51 IMPRESSION: Small amount of free fluid is seen in the cul-de-sac. This may be related to the patient's menstrual cycle. Pessary device is seen in the region of the uterine cervix. Reading Location: [facility] CT scan of the abdomen and pelvis was obtained. There is a small amount of free fluid in the cul-de-sac. There is no evidence of appendicitis. There is a pessary device in the uterine cervix. There is no other acute abnormality noted. This was interpreted by the radiologist and was also independently reviewed by myself. Treatment and Re-Evaluation :: Patient was ordered IV fluids, morphine, and Zofran. Patient declined the morphine. Patient preferred nonnarcotic pain medication. Patient was given injection of Toradol. Patient was given a dose of Zofran to take as needed for nausea. Patient was advised of her findings. Patient was instructed to follow-up with her primary care physician in 3 to 5 days for further evaluation. Patient is instructed to return if worse in any way. Patient understood and was agreeable with plan. All questions were answered. Discharge Plan Triage Chief Complaint: Abd Pain ED Provider: Liban Small Dx/Rx/DC Orders Clinical Impression: Abdominal pain, Nausea Instructions: ED Abdominal Pain Unkn Cause Fem Prescriptions: New ondansetron 4 mg tablet,disintegrating 4 mg PO Q8H PRN PRN (Reason: Nausea) Qty: 10 0RF No Action acyclovir 200 mg capsule 200 mg PO TID PRN Annovera 0.15-0.013 mg/24 hour ring 1 vag ring vaginal Q4W Qty: 1 0RF Rx Instructions: leave in place for 3 weeks of a 4-week cycle Primary Care Provider: Addi yBnum Referrals: Addi Bynum MD [Primary Care Provider] - 3-5 Days Print Language: Palestinian Disposition Disposition: Home, Self Care Discharge Date/Time: 09/10/24 15:25
[2024-09-10 13:13] LABS: Hematocrit 41.8 % (37-47); Hemoglobin 14.1 g/dL (12.0-15.0); Immature Granulocytes Count 0.020 X10^3/uL (0.0-0.0); Mean Corp Hgb Conc 33.7 g/dL (32-36); Mean Corpuscular Volume 84.3 fL (81-99); Mean Platelet Vol. 11.7 fl (6.2-12.0); NRBC Flagged by Analyzer 0 % (0-5); Platelet Count 203 K/mm3 (150-450); RBC Distribution Width CV 12.0 % (11.6-14.6); RBC Distribution Width SD 36.2 fl (35.1-43.9); Red Blood Count 4.96 M/mm3 (4.2-5.4); White Blood Count 4.5 K/mm3 (4.4-11.0)
[2024-09-10] MEDS: 0.9% Normal Saline (1000mL) 1,000 ML 999 ML IV (13:16)
[2024-09-10 13:26] LABS: Red Blood Cells-Urine 0 SEEN /hpf (0-5)
[2024-09-10 13:27] LABS: Color, Urine Yellow (Yellow); Glucose, Dipstick Normal (Normal); Ketone-Dipstick 5 mg/dl (Negative); Leukocyte Esterase-Dipstick 100 /ul (Negative); Nitrite-Dipstick Negative (Negative); Occult Blood-Urine Negative /ul (Negative); Protein-Dipstick 30 mg/dl (Negative); Specific Gravity, Urine 1.025 (1.002-1.030); Urine Bilirubin Dipstick 1 mg/dL (Negative)
[2024-09-10 13:32] LABS: Squamous Epithelial Cells - UA 5-10 SEEN /hpf (5-10)
[2024-09-10 13:33] LABS: Mucous, Urine 1+ /hpf (<or=2+)
[2024-09-10 13:37] LABS: AST(SGOT) 20 U/L (<=31); Alanine Aminotransfer ALT/SGPT 11 U/L (<=34); Albumin, Serum 4.0 g/dL (3.5-5.0); Alkaline Phosphatase 63 U/L (35-104); Anion Gap 10 (5-15); BUN 10 mg/dL (4-19); BUN/Creat Ratio 11.1 RATIO (10-20); Calcium,Total 8.9 mg/dL (7.6-11.0); Carbon Dioxide 24.5 mmol/L (21.0-32.0); Chloride 105 mmol/L (98-108); Estimated Creatinine Clearance 85.30 ml/min (50-250); Globulin 3.0 g/dL (2.2-4.2); Glucose 83 mg/dL (70-99); Lipase 13 U/L (13-75); Potassium 4.0 mmol/L (3.3-5.1)
[2024-09-10 13:52] VITALS: BP 103/66; PULSE 70; RESP 16; O2SAT 100
[2024-09-10 14:01] LABS: Internal QC Validated? YES +Cl - CLEAR BKGD; Pregnancy, Serum, hCG Quali. NEGATIVE Negative; Record Kit Lot#, Serum Preg. 962302
[2024-09-10 15:00] VITALS: BP 99/76; PULSE 81; RESP 16; O2SAT 100
[2024-09-10] MEDS: Ketorolac 30 MG/ML Syringe IV (15:18)
[2024-09-10 15:22] VITALS: BP 99/76; PULSE 81; RESP 16; TEMP 37; O2SAT 100
== END 2024-09-10 15:25 | disposition home or self-care (01) ==
PROVIDERS: Emergency Provider Emergency Medicine; PCP Family Medicine; Visit Provider Emergency Medicine
DX: R10.13 Epigastric pain (principal); R10.31 Right lower quadrant pain; R11.0 Nausea
CPT/HCPCS: 74177; 80053; 81001; 83690; 84703; 85025; 96361; 96374; 99283; Q9967; A4216; J2405